=== PATIENT | male | born 1980 | race Caucasian/White ===

== ENCOUNTER 2022-10-09 19:57 | Emergency (ER) | payer BC, OTHER ==
[~2022-10-09] VITALS: Ht 172.7 cm; Wt 90.7 kg
[2022-10-09] MEDS ORDERED: LIDOCAINE HCL 1% 20 ML VIAL ONE (20:36)
[2022-10-09] MEDS ORDERED: LIDOCAINE HCL 1% 20 ML VIAL IJ ONE (21:00)
[2022-10-09 21:24] VITALS: BP 132/78; TEMP 98; O2SAT 98
== END 2022-10-09 21:25 | disposition home or self-care (01) ==
LOC: ER 20:25
DX: K64.5 Perianal venous thrombosis (principal)
CPT/HCPCS: 46320; 99284; J3490; A4663